=== PATIENT | female | born 1960 | race Caucasian/White ===

== ENCOUNTER 2016-09-25 16:23 | Emergency (ER) | payer BC, OTHER ==
[2016-09-25 17:37] VITALS: BP 129/83
--- NOTE | 2016-09-25 17:50 | UC ---
Respiratory Complaint HPI - HPI Summary HPI Summary: Patient c/o cough x4 weeks with associated chest congestion, tightness and post nasal drip. Denies ear pain, eye pain or CRESPO. states she was seen 4 weeks ago and was not given anything for symptomatic treatment. today, she complains of worsening cough and is thinking it may be in her chest now. she would like to rule out a PNA or bronchitis. states she was sent home from work today. Patient had laryngitis 4 weeks ago as well and that has slowly been improving. she states she did not take anything for the sore throat and never was tested for strep. denies sick contacts - History of Current Complaint Chief Complaint: UC Stated Complaint: SINUSES,CHEST CONGESTION Hx Obtained From: Patient Hx Last Menstrual Period: 6 years ago. Onset/Duration: Gradual Onset Timing: Constant Severity Initially: Moderate Pain Intensity: 2 Pain Scale Used: 0-10 Numeric Character: Cough: Nonproductive Aggravating Factors: Deep Breaths Associated Signs And Symptoms: Positive: Dyspnea, Pleuritic Chest Pain, Wheezing , URI, Nasal Congestion, Hoarseness, Sinus Discomfort - Risk Factors Pulmonary Embolism Risk Factors: Negative Cardiac Risk Factors: Negative Pseudomonas Risk Factors: Negative Tuberculosis Risk Factors: Negative - Allergies/Home Medications Allergies/Adverse Reactions: Allergies Allergy/AdvReac Type Severity Reaction Status Date / Time No Known Allergies Allergy Verified 08/26/16 13:32 PMH/Surg Hx/FS Hx/Imm Hx Previously Healthy: Yes Endocrine History Of: Reports: Thyroid Disease Denies: Diabetes, Hyperthyroidism, Hypothyroidism, Dyslipidemia Cardiovascular History Of: Reports: Hypertension Denies: Cardiac Disorders, Pacemaker/ICD, Myocardial Infarction, Congestive Heart Failure, Atrial Fibrillation, Deep Vein Thrombosis, Bleeding Disorders Respiratory History Of: Denies: COPD, Asthma, Bronchitis, Pneumonia, Pulmonary Embolism GI/ History Of: Denies: Gastroesophageal Reflux, Ulcer, Gastrointestinal Bleed, Gall Bladder Disease, Kidney Stones, Diverticulitis, Renal Disease, Urosepsis Neurological History Of: Denies: TIA, CVA, Dementia, Seizures, Migraine Psychological History Of: Denies: Anxiety, Depression, Bipolar Disorder, Schizophrenia, Post Traumatic Stress Disorder Cancer History Of: Denies: Lung Cancer, Colorectal Cancer, Breast Cancer, Prostate Cancer, Cervical Cancer Other History Of: Negative For: HIV, Hepatitis B, Hepatitis C, Anticoagulant Therapy - Surgical History Surgical History: Yes Surgery Procedure, Year, and Place: [facility] - Family History Known Family History: Positive: Cardiac Disease, Hypertension - Social History Occupation: Employed Full-time Lives: With Family Alcohol Use: Weekly Substance Use Type: None Smoking Status (MU): Never Smoked Tobacco Have You Smoked in the Last Year: No - Immunization History Most Recent Influenza Vaccination: not this season Hx Tetanus, Diphtheria Vaccination: Yes Vaccination Up to Date: Yes Review of Systems Constitutional: Fatigue Skin: Negative Eyes: Negative ENT: Sore Throat, Ear Ache, Nasal Discharge Respiratory: Shortness Of Breath, Cough Cardiovascular: Negative Gastrointestinal: Abdominal Pain Genitourinary: Negative Motor: Negative Neurovascular: Negative Neurological: Negative All Other Systems Reviewed And Are Negative: Yes Physical Exam Triage Information Reviewed: Yes Appearance: Well-Appearing, No Pain Distress, Well-Nourished Vital Signs: Initial Vital Signs Temp 98.1 F 09/25/16 17:32 Pulse 84 09/25/16 17:32 Resp 16 09/25/16 17:32 BP 129/83 09/25/16 17:32 Pulse Ox 98 09/25/16 17:32 Vital Signs Reviewed: Yes Eye Exam: Normal Eyes: Positive: Conjunctiva Clear ENT: Positive: Pharynx normal, Nasal congestion, TMs normal Dental Exam: Normal Neck exam: Normal Neck: Positive: Supple, Nontender, No Lymphadenopathy Respiratory Exam: Normal Respiratory: Positive: Chest non-tender, Lungs clear Cardiovascular Exam: Normal Musculoskeletal Exam: Normal Neurological Exam: Normal Neurological: Positive: Alert Psychological Exam: Normal Psychological: Positive: Normal Response To Family, Age Appropriate Behavior Skin Exam: Normal UC Diagnostic Evaluation - Laboratory O2 Sat by Pulse Oximetry: 98 Respiratory Course/Dx - Course Course Of Treatment: Patient sent to xray d/t 4 weeks cough/congestion and SOB. Xrays negative. patient dc'd with tesslaon and prednisone. - Differential Dx/Diagnosis Differential Diagnosis/HQI/PQRI: Bronchitis, Lower Resp Infection, Sinusitis Provider Diagnoses: URI Discharge - Discharge Plan Condition: Stable Disposition: HOME Prescriptions: Benzonatate CAP* [Tessalon CAP*] 100 mg PO TID #21 cap MDD 3 predniSONE TAB* [Deltasone TAB*] 10 mg PO DAILY #17 tab Patient Education Materials: Upper Respiratory Infection (ED) Referrals: SMITA Cruz [Primary Care Provider] - Additional Instructions: Drink plenty of fluids. Take medication as prescribed to you. If symptoms worsen, come back to UC. Humidifier, lemon, honey, hot tea and soothing throat lozenges will also help
--- NOTE | 2016-09-25 18:28 | RAD ---
INDICATION: 4 weeks cough and congestion. COMPARISON: None. TECHNIQUE: Dual energy PA and routine lateral views of the chest were obtained. REPORT: Elevated lung volumes. Negative for alveolar consolidation, focal pulmonary lesion, pleural effusion, pneumothorax. The heart, pulmonary vasculature, and mediastinal contours are unremarkable. IMPRESSION: Stigmata of potential chronic obstructive pulmonary disease. No acute cardiopulmonary process evident.
== END 2016-09-25 18:53 | disposition home or self-care (01) ==
LOC: UCCORT 16:23
DX: J06.9 Acute upper respiratory infection, unspecified (principal)
CPT/HCPCS: 71020; 99212; G0463

== ENCOUNTER 2016-12-10 10:55 | Emergency (ER) | payer BC, OTHER ==
[2016-12-10 12:35] VITALS: BP 128/88
--- NOTE | 2016-12-10 12:56 | UC ---
Respiratory Complaint HPI - HPI Summary HPI Summary: Patient has been fighting a cough and sinus symptoms for the past 2 months, has been on doses of prednisone will some relief and then it returns. Patient has cough, sinus pressure and SOb with exertion - History of Current Complaint Chief Complaint: UCRespiratory Stated Complaint: COUGH Time Seen by Provider: 12/10/16 12:39 Hx Obtained From: Patient Hx Last Menstrual Period: 10 yrs ?: No Onset/Duration: Sudden Onset, Lasting Days Timing: Constant Severity Initially: Moderate Severity Currently: Severe Character: Cough: Nonproductive Aggravating Factors: Exertion, Deep Breaths, Recumbent Position Alleviating Factors: Nothing Associated Signs And Symptoms: Positive: Dyspnea, Wheezing, URI, Nasal Congestion, Sinus Discomfort - Allergies/Home Medications Allergies/Adverse Reactions: Allergies Allergy/AdvReac Type Severity Reaction Status Date / Time No Known Allergies Allergy Verified 12/10/16 12:35 Home Medications: Home Medications Ascorbic Acid TAB* [Vitamin C TAB*] 1 tab PO SEE INSTRUCTIONS PRN 12/10/16 [ History Confirmed 12/10/16] PMH/Surg Hx/FS Hx/Imm Hx Previously Healthy: Yes Endocrine History Of: Reports: Thyroid Disease Denies: Diabetes, Hyperthyroidism, Hypothyroidism, Dyslipidemia Cardiovascular History Of: Reports: Hypertension Denies: Cardiac Disorders, Pacemaker/ICD, Myocardial Infarction, Congestive Heart Failure, Atrial Fibrillation, Deep Vein Thrombosis, Bleeding Disorders Respiratory History Of: Denies: COPD, Asthma, Bronchitis, Pneumonia, Pulmonary Embolism GI/ History Of: Denies: Gastroesophageal Reflux, Ulcer, Gastrointestinal Bleed, Gall Bladder Disease, Kidney Stones, Diverticulitis, Renal Disease, Urosepsis Neurological History Of: Denies: TIA, CVA, Dementia, Seizures, Migraine Psychological History Of: Denies: Anxiety, Depression, Bipolar Disorder, Schizophrenia, Post Traumatic Stress Disorder Cancer History Of: Denies: Lung Cancer, Colorectal Cancer, Breast Cancer, Prostate Cancer, Cervical Cancer Other History Of: Negative For: HIV, Hepatitis B, Hepatitis C, Anticoagulant Therapy - Surgical History Surgical History: Yes Surgery Procedure, Year, and Place: [facility] - Family History Known Family History: Positive: Cardiac Disease, Hypertension - Social History Alcohol Use: Weekly Substance Use Type: None Smoking Status (MU): Never Smoked Tobacco Have You Smoked in the Last Year: No - Immunization History Most Recent Influenza Vaccination: not this season Hx Tetanus, Diphtheria Vaccination: Yes Vaccination Up to Date: Yes Review of Systems Constitutional: Chills, Fatigue Skin: Negative Eyes: Negative ENT: Sore Throat, Nasal Discharge Respiratory: Shortness Of Breath, Cough Cardiovascular: Negative Gastrointestinal: Negative Genitourinary: Negative Motor: Negative Neurovascular: Negative Musculoskeletal: Negative Neurological: Headache Psychological: Negative All Other Systems Reviewed And Are Negative: Yes Physical Exam Triage Information Reviewed: Yes Appearance: Well-Nourished, Ill-Appearing, Pain Distress Vital Signs: Initial Vital Signs Temp 98.8 F 12/10/16 12:30 Pulse 85 12/10/16 12:30 Resp 20 12/10/16 12:30 BP 128/88 12/10/16 12:30 Pulse Ox 98 12/10/16 12:30 Vital Signs Reviewed: Yes Eye Exam: Normal Eyes: Positive: Conjunctiva Clear ENT: Positive: Pharyngeal erythema - with white spots on soft palate, Nasal congestion, TM bulging, Tonsillar swelling Dental Exam: Normal Neck exam: Normal Neck: Positive: Supple, Nontender, No Lymphadenopathy Respiratory Exam: Normal Respiratory: Positive: Chest non-tender, No respiratory distress, No accessory muscle use, Wheezing, Inspiration Cardiovascular Exam: Normal Cardiovascular: Positive: RRR, No Murmur, Pulses Normal Abdominal Exam: Normal Abdomen Description: Positive: Nontender, No Organomegaly, Soft Bowel Sounds: Positive: Present Musculoskeletal Exam: Normal Neurological Exam: Normal Psychological Exam: Normal Skin Exam: Normal UC Diagnostic Evaluation - Laboratory O2 Sat by Pulse Oximetry: 98 Respiratory Course/Dx - Course Course Of Treatment: hx obtained, exam performed, meds reviewed, treated for sinusitis and bronchitis. - Differential Dx/Diagnosis Differential Diagnosis/HQI/PQRI: Asthma, Bronchitis, Influenza, Laryngitis, Sinusitis Provider Diagnoses: bronchitis. sinusitis Discharge - Discharge Plan Condition: Stable Disposition: HOME Prescriptions: Albuterol HFA INHALER* [Ventolin HFA Inhaler*] 2 puff INH Q4H PRN #1 mdi PRN Reason: Cough Azithromycin TAB* [Zithromax TAB (Z-FABIO) 250 mg #6 tabs] 2 tab PO .TODAY, THEN 1 DAILY #1 fabio Patient Education Materials: Acute Bronchitis (ED) Referrals: SMITA Cruz [Primary Care Provider] - Additional Instructions: TAke the medication as prescribed. Increase your fluid intake and get plenty of rest.
== END 2016-12-10 13:01 | disposition home or self-care (01) ==
LOC: UCCORT 10:55
DX: J40 Bronchitis, not specified as acute or chronic (principal); J32.9 Chronic sinusitis, unspecified
CPT/HCPCS: 99212; G0463

== ENCOUNTER 2018-02-07 14:44 | Emergency (ER) | payer BC, OTHER ==
[2018-02-07 16:22] VITALS: BP 137/97
--- NOTE | 2018-02-07 17:03 | UC ---
Laceration HPI - HPI Summary HPI Summary: C/O right eye brow laceration from tripping over the dog and hitting a door. 0530 this morning. - History Of Current Complaint Chief Complaint: UCLaceration Stated Complaint: CUT ON EYEBROW (FALL) THIS AM Time Seen by Provider: 02/07/18 16:46 Hx Obtained From: Patient Hx Last Menstrual Period: 10yrs Laceration Location: Face - left eyebrow. Mechanism Of Injury: Blunt Trauma Severity: Mild Pain Intensity: 2 Aggravating Factors: Nothing - Allergies/Home Medications Allergies/Adverse Reactions: Allergies Allergy/AdvReac Type Severity Reaction Status Date / Time No Known Allergies Allergy Verified 02/07/18 16:23 PMH/Surg Hx/FS Hx/Imm Hx Endocrine History: Hypothyroidism Cardiovascular History: Hypertension Other History Of: Negative For: HIV, Hepatitis B, Hepatitis C, Anticoagulant Therapy - Surgical History Surgical History: Yes Surgery Procedure, Year, and Place: cholecystectomy - Family History Known Family History: Positive: Cardiac Disease, Hypertension Negative: Diabetes - Social History Occupation: Employed Full-time Lives: With Family Alcohol Use: Occasionally Substance Use Type: None Smoking Status (MU): Never Smoked Tobacco Have You Smoked in the Last Year: No - Immunization History Most Recent Influenza Vaccination: not this season Most Recent Tetanus Shot: with in 5 yrs Hx Tetanus, Diphtheria Vaccination: Yes Vaccination Up to Date: Yes Review of Systems Is Patient Immunocompromised?: No All Other Systems Reviewed And Are Negative: Yes Physical Exam Triage Information Reviewed: Yes Appearance: Well-Appearing, No Pain Distress, Well-Nourished Vital Signs: Initial Vital Signs Temp 98.7 F 02/07/18 16:14 Pulse 82 02/07/18 16:14 Resp 18 02/07/18 16:14 BP 137/97 02/07/18 16:14 Pulse Ox 99 02/07/18 16:14 Vital Signs Reviewed: Yes Eyes: Positive: Conjunctiva Clear Neck: Positive: Supple, Nontender Respiratory Exam: Normal Cardiovascular Exam: Normal Musculoskeletal Exam: Normal Neurological Exam: Normal Psychological Exam: Normal Skin Exam: Normal Laceration Repair - Laceration Repair 1 Description: Linear Laceration Size After Repair: Length (cm) - 1.5 cm Modified For Repair: No Cleansing Completed Via Routine Prep: Yes Irrigation With Pressure Irrigation Device: Yes Closure Material: Skin Adhesive Laceration Course/Dx - Differential Dx - Laceration/Wound Differental Diagnoses: Abrasion, Avulsion, Foreign Body, Laceration Provider Diagnoses: Open wound left eyebrow Discharge - Sign-Out/Discharge Documenting (check all that apply): Discharge/Admit/Transfer - Discharge Plan Condition: Stable Disposition: HOME Patient Education Materials: Facial Laceration (ED), Skin Adhesive Care (ED) Referrals: SMITA Cruz [Primary Care Provider] - Additional Instructions: Protect from the sun all summer to reduce scarring. - Billing Disposition and Condition Condition: STABLE Disposition: HOME Images Head: 1 - 1.5cm laceration left eyebrow
== END 2018-02-07 17:15 | disposition home or self-care (01) ==
LOC: UCCORT 14:44
DX: S01.111A Laceration without foreign body of right eyelid and periocular area, initial encounter (principal); W01.0XXA Fall on same level from slipping, tripping and stumbling without subsequent striking against object, initial encounter; Y93.01 Activity, walking, marching and hiking; Y92.9 Unspecified place or not applicable; I10 Essential (primary) hypertension
CPT/HCPCS: 12011; 99211; G0463

== ENCOUNTER 2018-06-30 07:55 | Emergency (ER) | payer BC ==
[2018-06-30 08:16] VITALS: BP 143/85
--- NOTE | 2018-06-30 09:22 | UC ---
Skin Complaint HPI - HPI Summary HPI Summary: 57-year-old woman comes in with a chief complaint of a lip swelling. Yesterday morning when she woke up she felt her lips are swollen. She also feels at the angles of her mouth it's irritated and tender. She took some Benadryl the swelling went down. This morning when she woke up the swelling had returned of her lips and also she's having some mild difficulty swallowing. No difficulty with breathing or shortness of breath. No rash otherwise. She is on lisinopril and hydrochlorothiazide and also a thyroid medication. - History of Current Complaint Chief Complaint: UCGeneralIllness Time Seen by Provider: 06/30/18 09:04 Stated Complaint: SORE THROAT,ORAL COMPAINT Hx Last Menstrual Period: 10yrs Pain Intensity: 7 - Allergy/Home Medications Allergies/Adverse Reactions: Allergies Allergy/AdvReac Type Severity Reaction Status Date / Time No Known Allergies Allergy Verified 02/07/18 16:23 Review of Systems Constitutional: Negative Skin: Other - SEE HPI Eyes: Negative ENT: Other - SEE HPI Respiratory: Negative Cardiovascular: Negative Gastrointestinal: Negative Motor: Negative Neurovascular: Negative Musculoskeletal: Other: - SEE HPI Neurological: Negative Psychological: Negative Is Patient Immunocompromised?: No All Other Systems Reviewed And Are Negative: Yes PMH/Surg Hx/FS Hx/Imm Hx Endocrine History: Hypothyroidism Cardiovascular History: Hypertension Other History Of: Negative For: HIV, Hepatitis B, Hepatitis C, Anticoagulant Therapy - Surgical History Surgical History: Yes Surgery Procedure, Year, and Place: cholecystectomy. - Family History Known Family History: Positive: Cardiac Disease, Hypertension Negative: Diabetes - Social History Alcohol Use: Occasionally Substance Use Type: None Smoking Status (MU): Never Smoked Tobacco Have You Smoked in the Last Year: No - Immunization History Most Recent Influenza Vaccination: not this season Most Recent Tetanus Shot: with in 5 yrs Hx Tetanus, Diphtheria Vaccination: Yes Vaccination Up to Date: Yes Physical Exam Triage Information Reviewed: Yes Appearance: Well-Appearing, No Pain Distress, Well-Nourished Vital Signs: Initial Vital Signs Temp 98.2 F 06/30/18 08:12 Pulse 78 06/30/18 08:12 Resp 18 06/30/18 08:12 BP 143/85 06/30/18 08:12 Pulse Ox 100 06/30/18 08:12 Vital Signs Reviewed: Yes Eye Exam: Normal Eyes: Positive: Conjunctiva Clear ENT: Positive: Pharynx normal, Other - The upper lip is slightly swollen. The angles of the mouth prior erythematous. The patent reports her tongue might be slightly swollen although that's not obvious on exam. Oral pharynx is open. Uvula midline.. Negative: Nasal congestion, Nasal drainage Neck exam: Normal Neck: Positive: Supple Respiratory: Positive: Lungs clear, Normal breath sounds, No respiratory distress Cardiovascular: Positive: RRR Musculoskeletal Exam: Normal Musculoskeletal: Positive: Strength Intact Neurological Exam: Normal Neurological: Positive: Alert, Muscle Tone Normal Psychological Exam: Normal Psychological: Positive: Age Appropriate Behavior Skin: Positive: Other - SEE ENT PE Course/Dx - Course Course Of Treatment: The cause of the lip swelling and pain at the angles of the mouth could be due to angioedema from taking lisinopril. The plan is to stop the lisinopril and hydrochlorothiazide, a trial of prednisone and follow up with her primary care doctor. Patient knows if she has difficulty with breathing swelling gets worse she should go to the emergency department. Angular cheilitis is also another possibility for the lips therefore I will prescribe Chlortrimazole and mupirocin and also follow up with her primary care doctor. - Diagnoses Provider Diagnoses: LIP SWELLING Discharge - Sign-Out/Discharge Documenting (check all that apply): Patient Departure All imaging exams completed and their final reports reviewed: No Studies - Discharge Plan Condition: Stable Disposition: HOME Prescriptions: Clotrimazole 1 applic TOPICAL BID PRN #14 gm PRN Reason: Rash Mupirocin 1 applic TOPICAL TID PRN #22 gm PRN Reason: Rash predniSONE TAB* [Deltasone 20 MG TAB*] 60 mg PO DAILY PRN #15 tab PRN Reason: Rash Patient Education Materials: Angioedema (ED) Referrals: [facility] [place] [facility] [Outside] Additional Instructions: FOLLOW UP WITH YOUR DOCTOR. THE LIP SWELLING AND PAIN MAY BE A REACTION TO ONE OF YOUR MEDICATION ( ANGIOEDEMA; LISINOPRIL MOST LIKELY) OR AN INFECTION (ANGULAR CHELITIS). CALL TODAY TO ARRANGE FOLLOW UP. TAKE BENADRYL DIRECTED NEEDED FOR THE SWELLING. TAKE THE PREDNISONE DIRECTED NEEDED. STOP TAKING THE LISINOPRIL AND HCTZ. USE THE ANTI FUNGAL AND ANTI BACTERIAL CREAMS DIRECTED. GO TO THE EMERGENCY DEPARTMENT FOR ANY WORSENING OF YOUR CONDITION; DIFFICULTY WITH SWALLOWING OR BREATHING, YOU FEEL ILL OR QUESTIONS OR CONCERNS. - Billing Disposition and Condition Condition: STABLE Disposition: Home
== END 2018-06-30 09:42 | disposition home or self-care (01) ==
LOC: UCCORT 07:55
DX: R22.0 Localized swelling, mass and lump, head (principal); I10 Essential (primary) hypertension; E03.9 Hypothyroidism, unspecified
CPT/HCPCS: 99212; G0463

== ENCOUNTER 2018-09-04 10:36 | Emergency (ER) | payer BC, OTHER ==
[2018-09-04 11:34] VITALS: BP 147/86
--- NOTE | 2018-09-04 11:54 | UC ---
Skin Complaint HPI - HPI Summary HPI Summary: Rash starting today. son recently diagnosed with scabies. - History of Current Complaint Chief Complaint: UCRash Time Seen by Provider: 09/04/18 11:43 Stated Complaint: SKIN COMPLAINT Hx Obtained From: Patient Hx Last Menstrual Period: 10yrs Onset/Duration: Gradual Onset, Lasting Hours Skin Exposure Onset/Duration: Hours Ago Timing: Constant Onset Severity: Mild Current Severity: Mild Pain Intensity: 6 Location: Diffuse - inner thighs geremias. Character: Pruritus Aggravating Factor(s): Touch Alleviating Factor(s): Nothing Associated Signs & Symptoms: Positive: Rash - Allergy/Home Medications Allergies/Adverse Reactions: Allergies Allergy/AdvReac Type Severity Reaction Status Date / Time lisinopril Allergy Swelling Uncoded 09/04/18 11:38 Of Face,Lips,& Throat Home Medications: Home Medications amLODIPine TAB* [Norvasc 5 mg TAB*] 10 mg PO DAILY 09/04/18 [History Confirmed 09/04/18] PMH/Surg Hx/FS Hx/Imm Hx Previously Healthy: No Other History Of: Negative For: HIV, Hepatitis B, Hepatitis C, Anticoagulant Therapy - Surgical History Surgical History: Yes Surgery Procedure, Year, and Place: cholecystectomy. , uterine ablation - Family History Known Family History: Positive: Cardiac Disease, Hypertension Negative: Diabetes - Social History Lives: With Family Alcohol Use: Occasionally Substance Use Type: None Smoking Status (MU): Never Smoked Tobacco Have You Smoked in the Last Year: No - Immunization History Most Recent Influenza Vaccination: not this season Most Recent Tetanus Shot: with in 5 yrs Hx Tetanus, Diphtheria Vaccination: Yes Vaccination Up to Date: Yes Review of Systems All Other Systems Reviewed And Are Negative: Yes Skin: Positive: Rash Is Patient Immunocompromised?: No Physical Exam Triage Information Reviewed: Yes Appearance: Well-Appearing, No Pain Distress, Well-Nourished Vital Signs: Initial Vital Signs Temp 97.9 F 09/04/18 11:25 Pulse 81 09/04/18 11:25 Resp 18 09/04/18 11:25 BP 147/86 09/04/18 11:25 Pulse Ox 95 09/04/18 11:25 Vital Signs Reviewed: Yes Eye Exam: Normal Eyes: Positive: Conjunctiva Clear ENT: Positive: Normal ENT inspection Neck: Negative: Nuchal Rigidity Respiratory: Positive: No respiratory distress, No accessory muscle use Cardiovascular: Positive: Brisk Capillary Refill Abdomen Description: Negative: Distended Musculoskeletal: Positive: ROM Intact, No Edema Neurological: Positive: Alert, Muscle Tone Normal. Negative: Fatigued Psychological: Positive: Age Appropriate Behavior Skin: Positive: Other - No rash on hands, wrists or neck or face. Course/Dx - Diagnoses Provider Diagnosis: Rash, Scabies exposure Discharge - Sign-Out/Discharge Documenting (check all that apply): Patient Departure All imaging exams completed and their final reports reviewed: No Studies - Discharge Plan Condition: Good Disposition: HOME Prescriptions: Permethrin [Elimite] 60 gm TP BEDTIME #2 cream..g. Patient Education Materials: Scabies (ED) Referrals: No Primary Care Phys,NOPCP [Primary Care Provider] - - Billing Disposition and Condition Condition: GOOD Disposition: Home
== END 2018-09-04 11:55 | disposition home or self-care (01) ==
LOC: UCCORT 10:36
DX: R21 Rash and other nonspecific skin eruption (principal); Z20.7 Contact with and (suspected) exposure to pediculosis, acariasis and other infestations; Z88.8 Allergy status to other drugs, medicaments and biological substances
CPT/HCPCS: 99212; G0463

== ENCOUNTER 2018-11-29 08:01 | Emergency (ER) | payer BC ==
[2018-11-29 08:48] VITALS: BP 143/97
--- NOTE | 2018-11-29 09:23 | UC ---
UC General HPI - HPI Summary HPI Summary: sore throat since last pm. exposed to strep throat. upset stomach. - History of Current Complaint Chief Complaint: UCGeneralIllness Stated Complaint: ST Time Seen by Provider: 11/29/18 08:52 Hx Obtained From: Patient Hx Last Menstrual Period: 10yrs Onset/Duration: Gradual Onset Timing: Constant Pain Intensity: 6 Associated Signs & Symptoms: Negative: Diarrhea, Vomiting - Allergy/Home Medications Allergies/Adverse Reactions: Allergies Allergy/AdvReac Type Severity Reaction Status Date / Time lisinopril Allergy Swelling Verified 11/29/18 08:47 Of Face,Lips,& Throat PMH/Surg Hx/FS Hx/Imm Hx Endocrine History: Thyroid Disease Cardiovascular History: Hypertension Other History Of: Negative For: HIV, Hepatitis B, Hepatitis C, Anticoagulant Therapy - Surgical History Surgical History: Yes Surgery Procedure, Year, and Place: cholecystectomy. , uterine ablation - Family History Known Family History: Positive: Cardiac Disease, Hypertension Negative: Diabetes - Social History Occupation: Employed Full-time Alcohol Use: Occasionally Substance Use Type: None Smoking Status (MU): Never Smoked Tobacco Have You Smoked in the Last Year: No - Immunization History Most Recent Influenza Vaccination: not this season Most Recent Tetanus Shot: with in 5 yrs Hx Tetanus, Diphtheria Vaccination: Yes Vaccination Up to Date: Yes Review of Systems All Other Systems Reviewed And Are Negative: Yes ENT: Positive: Sore Throat Gastrointestinal: Positive: Nausea. Negative: Abdominal Pain, Vomiting, Diarrhea Physical Exam Triage Information Reviewed: Yes Appearance: Well-Appearing Vital Signs: Initial Vital Signs Temp 97.2 F 11/29/18 08:44 Pulse 76 11/29/18 08:44 Resp 16 11/29/18 08:44 BP 143/97 11/29/18 08:44 Pulse Ox 98 11/29/18 08:44 Vital Signs Reviewed: Yes Eyes: Positive: Conjunctiva Clear ENT: Positive: Pharyngeal erythema - with mild to moderate uvular edema and erythema, TMs normal, Uvula midline. Negative: Nasal congestion, Nasal drainage , Trismus, Muffled voice, Hoarse voice Neck: Positive: Supple, Nontender, Enlarged Nodes @ - peritonsilar Respiratory: Positive: Lungs clear, Normal breath sounds Cardiovascular: Positive: RRR, No Murmur Abdomen Description: Positive: Nontender, No Organomegaly, Soft Bowel Sounds: Positive: Present Musculoskeletal: Positive: ROM Intact Neurological: Positive: Alert Psychological: Positive: Age Appropriate Behavior Skin Exam: Normal Course/Dx - Course Course Of Treatment: rapid strep=neg; however, will tx for presumtive bacterial infection given PE. - Differential Dx - Multi-Symptom Differential Diagnoses: Other - pharyngitis, uvulitis. no concern for peritonsil or retropharyngeal abscess. - Diagnoses Provider Diagnosis: Uvulitis Discharge - Sign-Out/Discharge Documenting (check all that apply): Patient Departure All imaging exams completed and their final reports reviewed: No Studies - Discharge Plan Condition: Stable Disposition: HOME Prescriptions: Amoxicillin/Clavulanate TAB* [Augmentin TAB 875*] 875 mg PO BID 10 Days #20 tab Patient Education Materials: Uvulitis (ED) Referrals: SMITA Villanueva [Medical Doctor] - 4 Days - Billing Disposition and Condition Condition: STABLE Disposition: Home - Attestation Statements Provider Attestation: I was available for consult. This patient was seen by the FABIAN. The patient was not presented to, seen by, or examined by me. -Obdulia
[2018-11-29] MEDS ORDERED: Dexamethasone IV* 4 MG/ML 1 ML (4 MG) PO ONE (09:26)
== END 2018-11-29 09:38 | disposition home or self-care (01) ==
LOC: UCCORT 08:01
DX: K12.2 Cellulitis and abscess of mouth (principal); E07.9 Disorder of thyroid, unspecified; I10 Essential (primary) hypertension
CPT/HCPCS: 87070; 87651; 99212; G0463; J1100